=== PATIENT | male | born 1965 | race Caucasian/White ===

== ENCOUNTER 2022-02-06 11:11 | Emergency (ER) | payer MEDICAID ==
[~2022-02-06] VITALS: Ht 172.7 cm; Wt 80.0 kg
[2022-02-06 12:55] LABS: CLARITY URINE CLEAR (CLEAR); COLOR URINE YELLOW (YELLOW); KETONES URINE NEGATIVE (NEGATIVE); LEUKOCYTE ESTERASE URINE NEGATIVE (NEGATIVE); NITRITE URINE NEGATIVE (NEGATIVE); OCCULT BLOOD URINE NEGATIVE (NEGATIVE); PROTEIN URINE NEGATIVE (NEGATIVE); SPECIFIC GRAVITY URINE 1.003 (1.005-1.030); UROBILINOGEN URINE 0.2 E.U./dL (0.2-1.0)
[2022-02-06 13:00] LABS: CHLORIDE 94 mEq/L (98-107)
[2022-02-06 13:03] LABS: PROTHROMBIN TIME 11.1 sec (9.6-11.0)
[2022-02-06 13:08] LABS: HEMATOCRIT. 28.5 % (42.0-52.0); HEMOGLOBIN. 9.7 g/dL (14.0-18.0); MEAN CORPUSCULAR HEMOGLOBIN 31.5 pg (28.0-32.0); MEAN CORPUSCULAR VOLUME 92.7 fL (80.0-94.0); MEAN PLATELET VOLUME 7.2 fl (7.4-10.4); PLATELET 519 x1000/uL (130-400); RED BLOOD CELL COUNT 3.07 mill/uL (4.7-6.1); RED CELL DISTRIBUTION WIDTH 18.7 % (11.6-14.6)
[2022-02-06 13:12] LABS: ETHANOL BLOOD < 10 mg/dL
[2022-02-06 13:34] LABS: PLATELET ESTIMATE INCREASED
[2022-02-06] MEDS ORDERED: IOHEXOL-300 100 ML BOTTLE ONE (15:11)
[2022-02-07 09:24] VITALS: BP 120/68
== END 2022-02-07 10:25 | disposition home or self-care (01) ==
LOC: ER 11:11 → EDBEDREQ 15:17 → CANBEDREQ 18:05 → ER 02-07 10:25
DX: K85.90 Acute pancreatitis without necrosis or infection, unspecified (principal)
CPT/HCPCS: 36415; 71045; 74177; 80053; 80320; 81003; 83690; 84484; 85025; 85610; 93005; 99285; Q9967; G0480